=== PATIENT | male | born 2005 | race Hispanic/Latino ===

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

== ENCOUNTER 2025-08-19 23:04 | Emergency (ER) | payer SELFPAY ==
[2025-08-19 23:24] VITALS: BP 145/79; PULSE 120; RESP 16; O2SAT 100; BMI 25.8
--- NOTE | 2025-08-19 23:41 | DI.RAD.S_ITS ---
PROCEDURE: XR SHOULDER RT MIN 2V INDICATIONS: hx of dislocations sudden pain with playing football TECHNIQUE: 3 views of the shoulder were acquired. COMPARISON: [facility], CR, XR SHOULDER RT MIN 2V, 07/07/2022, 0:20. [facility], CR, XR SHOULDER RT MIN 2V, 07/06/2022, 22:57. FINDINGS: Bones: No fracture identified. Anterior inferior dislocation of the glenohumeral joint. No suspicious bony lesions. Visualized ribs appear intact. Soft tissues: No suspicious soft tissue calcifications. IMPRESSION: Right glenohumeral joint dislocation. Dictated by: Nuno Tong M.D. on 08/20/2025 at 2:12 Approved by: Nuno Tong M.D. on 08/20/2025 at 2:13
[2025-08-20] VITALS (15 sets, daily range): BP systolic 113–132; BP diastolic 67–82; PULSE 75–111; RESP 17–26; O2SAT 100
--- NOTE | 2025-08-20 01:26 | ED_ITS ---
HPI - Extremity Injury (Upper) General Chief Complaint: Extremity Injury, Upper Stated Complaint: fell, rt shoulder injury /pain Time Seen by Provider: 08/20/25 01:18 Source: patient Mode of arrival: Ambulatory History of Present Illness HPI narrative: 20-year-old male patient, with a history of recurrent right shoulder dislocations who was playing football and spontaneously dislocated the shoulder when he moved it slightly. No other complaint. Related Data Allergies Allergy/AdvReac Type Severity Reaction Status Date / Time No Known Drug Allergies Allergy Verified 07/06/22 22:46 Patient History Social History Smoking Status: Never smoker Smoking Status: Never smoker alcohol intake frequency: 0-2 drinks per day Alcohol type: beer Exam Narrative Exam Narrative: General: Alert and conversant. [id number] distress. Appears well nourished and well hydrated Craniofacial: No evidence of trauma. Nontender and no swelling. Eyes: PERRLA EOMI conjunctiva clear Lungs: Clear to auscultation with good air movement. No wheezing, rales or rhonchi. No respiratory distress Cardiac: Regular rate and rhythm with no appreciable murmur or gallop Abdomen: Soft, nontender with no distention or masses. Normal bowel sounds. No rebound or guarding Musculoskeletal: Right shoulder guarding with the coldness in the glenoid humeral joint. Distal neurovascular intact. Otherwise Exam of the extremities, axial spine and ribcage reveals no deformity, bony tenderness or swelling. Range of motion intact Neuro: Alert and oriented. Cranial nerves, motor, sensory and cerebellar all grossly intact. No focal deficit Skin: Warm and normal color. No rashes Psychological: Normal affect and interaction. No evidence of delusion or psychosis. Normal mood. Initial Vital Signs Initial Vital Signs: Vital Signs Pulse Rate 120 H 08/19/25 23:24 Respiratory Rate 16 08/19/25 23:24 Blood Pressure 145/79 H 08/19/25 23:24 Pulse Oximetry 100 08/19/25 23:24 Oxygen Delivery Method Room Air 08/19/25 23:24 Procedures Orthopedic Joint Reduction Joint #1: Time of procedure: 02:56 Time Out Performed: Yes Side: right Joint Reduction Location: shoulder Analgesia: procedural sedation Shoulder Technique Used (if applicable): external rotation Technique used: traction/counter-traction Post-reduction neuro exam: intact Post-reduction vascular: intact Post Reduction X-Ray Obtained: Yes Post Reduction X-Ray Results: reduced Splint Applied: Yes (Sling) Patient Tolerated Procedure: Well Procedural Sedation Time of procedure: 02:57 Consent signed: Yes Time out performed: Yes Indication: fracture/dislocation reduction ASA Class: I Mallampati Airway Classification: Class I Preparation: traffic monitor specialist applied, pulse oximeter, capnometry used and IV secured Fentanyl: IV Fentanyl dose (mcg): 100 IV Propofol dose (mg): 140 (Titrated) ED Sedation Level: Moderate (Concious) Patient Tolerated Procedure: Well Complications: none Course Orders Ordered: ED Orders 08/19/25 23:41 XR shoulder RT 2+ views Stat 08/20/25 03:00 XR shoulder RT 2+ views Stat Discontinued Medications Fentanyl (Fentanyl 100 Mcg/2 Ml Inj) 100 mcg IV NOW ONE Stop: 08/20/25 01:31 Last Admin: 08/20/25 01:41 Dose: 100 mcg Documented By: AYSE Propofol (Propofol 200 Mg/20 Ml Vial) 75 mg 1 mg/kg (75 mg) IV NOW ONE Stop: 08/20/25 02:43 Last Admin: 08/20/25 03:09 Dose: Not Given Propofol (Propofol 200 Mg/20 Ml Vial) 140 mg IV NOW ONE Stop: 08/20/25 03:10 Last Admin: 08/20/25 02:53 Dose: 140 mg Vital Signs Vital signs: Vital Signs - 8 hr 08/19/25 23:24 08/20/25 01:44 08/20/25 02:00 Pulse Rate 120 H 99 H 88 Respiratory Rate 16 Blood Pressure 145/79 H Pulse Oximetry 100 100 100 Oxygen Delivery Method Room Air Oxygen Flow Rate 08/20/25 02:28 08/20/25 02:45 08/20/25 02:47 Pulse Rate 111 H 108 H Respiratory Rate 26 H Blood Pressure 132/82 Pulse Oximetry 100 Oxygen Delivery Method Room Air Oxygen Flow Rate 08/20/25 02:50 08/20/25 02:50 08/20/25 02:55 Pulse Rate 107 H Respiratory Rate 17 Blood Pressure 129/67 122/70 Pulse Oximetry 100 Oxygen Delivery Method Oxygen Flow Rate 08/20/25 02:55 08/20/25 03:00 08/20/25 03:00 Pulse Rate 79 81 Respiratory Rate 25 H 24 Blood Pressure 125/78 Pulse Oximetry 100 100 Oxygen Delivery Method Nasal Cannula Room Air Oxygen Flow Rate 2 08/20/25 03:05 10/03/25 03:05 Pulse Rate 77 Respiratory Rate 19 Blood Pressure 121/75 Pulse Oximetry 100 Oxygen Delivery Method Room Air Oxygen Flow Rate MDM - Extremity Injury (Upper) Imaging Data Extremity x-ray #1: Attestation: I personally reviewed and interpreted this imaging study as follows: My Impression: Right shoulder radiographs: Anterior shoulder dislocation Extremity x-ray #2: Attestation: I personally reviewed and interpreted this imaging study as follows: My Impression: Postreduction right shoulder radiographs: Normal alignment with successful reduction. No fracture evident MDM Narrative Medical decision making narrative: Otherwise healthy patient with recurrent right shoulder dislocation. Reduction performed in the ER today. Patient given instructions on sling, cold packs and ibuprofen. Follow up with Orthopedics to discuss management of recurrent shoulder dislocations. Discharge Plan Departure Patient Disposition: Home Clinical Impression: Anterior dislocation of right shoulder Instructions: DI for Shoulder Dislocation Activity Restrictions/Additional Instructions: Plan: Sling, cold packs, ibuprofen. Follow up with Orthopedics to discuss recurrent shoulder dislocations. Referrals: Yusuf Zayas MD [Physician, Orthopedic Surgery] - 5-7 days Referral Note: Follow up for recurrent right shoulder dislocations Stand Alone Forms: Patient Portal/API
[2025-08-20] MEDS: fentaNYL 100 MCG/2 ML INJ IV (01:41)
--- NOTE | 2025-08-20 03:00 | DI.RAD.S_ITS ---
PROCEDURE: XR SHOULDER RT MIN 2V INDICATIONS: Postreduction TECHNIQUE: 2 views of the shoulder were acquired. COMPARISON: [facility], CR, XR SHOULDER RT 2+ VIEWS, 08/19/2025, 23:56. [facility], CR, XR SHOULDER RT MIN 2V, 07/07/2022, 0:20. FINDINGS: Bones: Reduction of the anterior right glenohumeral joint dislocation. Hill- Sachs deformity seen. No malalignment of the acromioclavicular joint. Right-sided ribs are intact. Soft tissues: No suspicious soft tissue calcifications. IMPRESSION: Normal alignment of the right shoulder joint after reduction. Hill-Sachs deformity redemonstrated. Dictated by: Caridad Altman M.D. on 08/20/2025 at 7:11 Approved by: Caridad Altman M.D. on 08/20/2025 at 7:13
== END 2025-08-20 03:42 | disposition home or self-care (01) ==
PROVIDERS: Emergency Provider Emergency Medicine
DX: S43.014A Anterior dislocation of right humerus, initial encounter (principal); X58.XXXA Exposure to other specified factors, initial encounter; Y93.61 Activity, american tackle football
CPT/HCPCS: 23650; 73030; 99152; 99285; J2704; J3010